=== PATIENT | male | born 1955 | race Two or more races ===

== ENCOUNTER 2024-09-05 14:53 | Outpatient (RCR) | payer MEDICARE, MEDICAID, SELFPAY ==
[2024-09-02 11:34] LABS: Basophils % (Auto) 1 % (0-2.5); Eosinophils # (Auto) 0.1 Thou/mm3 (0.0-0.5); Eosinophils % (Auto) 2 % (0-10); Hemoglobin 15.4 g/dL (13.5-16.0); Immature Granulocytes % (Auto) 0 % (0-0); Immature Granulocytes Auto 0.01 Thou/mm3 (0.00-0.00); Lymphocytes # (Auto) 2.2 Thou/mm3 (1.0-4.8); Lymphocytes % (Auto) 34 % (10-50); Mean Corpuscular HGB Conc 34.2 g/dl (31.0-37.0); Mean Corpuscular Hemoglobin 32.2 pg (25.0-35.0); Mean Corpuscular Volume 94 fL (80-100); Monocytes # (Auto) 0.4 Thou/mm3 (0.0-0.8); Monocytes % (Auto) 6 % (0-12); Neutrophils # (Auto) 3.6 Thou/mm3 (1.8-7.7); Neutrophils % (Auto) 57 % (37-80); Nucleated Red Blood Cell % 0 /100 WBC (0); Platelet Count 248 Thou/mm3 (140-440); RDW Standard Deviation 45.9 fL (35.1-43.9); Red Blood Count 4.79 Miln/mm3 (4.50-5.90); White Blood Count 6.3 Thou/mm3 (3.8-10.6)
[2024-09-02 12:05] LABS: Carcinoembryonic Antigen 1.9 ng/mL (0.0-5.0)
[2024-09-02 12:14] LABS: Alanine Aminotransferase 8 U/L (10-49); Albumin, Serum 4.6 gm/dL (3.4-4.8); Albumin/Globulin Ratio 1.6 (1.2-2.2); Alkaline Phosphatase 59 U/L (46-116); Anion Gap 8 (7-16); Aspartate Amino Transferase 26 U/L (0-34); BUN/Creatinine Ratio 11 Ratio (12-20); Bilirubin,Total 0.9 mg/dL (0.3-1.2); Blood Urea Nitrogen 11 mg/dL (9-23); Calcium 9.6 mg/dL (8.3-10.6); Calcium (Corrected) 9.6 mg/dL (8.5-10.1); Carbon Dioxide 26.2 mMol/L (20.0-31.0); Chloride 103 mMol/L (98-107); Globulin 2.9 gm/dL (2.3-3.5); Glucose 124 mg/dL (74-106); Osmolality,Calculated 274 (275-295); Potassium 3.3 mMol/L (3.4-5.1); Sodium 137 mMol/L (136-145); Total Protein 7.5 gm/dL (5.7-8.2); eGFR > 60 See Note
== END 2024-09-17 23:59 | disposition home or self-care (01) ==
LOC: SCTC 14:53
PROVIDERS: PCP Physician Assistant; Referring Provider Physician Assistant; Visit Provider Internal Medicine Hematology & Oncology
DX: C18.4 Malignant neoplasm of transverse colon (principal); Z90.49 Acquired absence of other specified parts of digestive tract
CPT/HCPCS: 36591; 80053; 82378; 85025; 99212; A4216; J1642; G0463

== ENCOUNTER 2024-10-03 11:23 | Outpatient (RCR) | payer MEDICARE, MEDICAID, SELFPAY ==
[2024-09-30 10:52] LABS: Basophils % (Auto) 1 % (0-2.5); Eosinophils # (Auto) 0.3 Thou/mm3 (0.0-0.5); Eosinophils % (Auto) 3 % (0-10); Hematocrit 44.5 % (41.0-53.0); Hemoglobin 15.3 g/dL (13.5-16.0); Immature Granulocytes % (Auto) 0 % (0-0); Immature Granulocytes Auto 0.01 Thou/mm3 (0.00-0.00); Lymphocytes # (Auto) 3.4 Thou/mm3 (1.0-4.8); Lymphocytes % (Auto) 45 % (10-50); Mean Corpuscular HGB Conc 34.4 g/dl (31.0-37.0); Mean Corpuscular Hemoglobin 31.6 pg (25.0-35.0); Mean Corpuscular Volume 92 fL (80-100); Monocytes # (Auto) 0.6 Thou/mm3 (0.0-0.8); Monocytes % (Auto) 8 % (0-12); Neutrophils # (Auto) 3.2 Thou/mm3 (1.8-7.7); Neutrophils % (Auto) 43 % (37-80); Nucleated Red Blood Cell % 0 /100 WBC (0); Platelet Count 179 Thou/mm3 (140-440); RDW Standard Deviation 43.8 fL (35.1-43.9); Red Blood Count 4.84 Miln/mm3 (4.50-5.90); White Blood Count 7.4 Thou/mm3 (3.8-10.6)
[2024-09-30 11:12] LABS: Carcinoembryonic Antigen 1.9 ng/mL (0.0-5.0)
[2024-09-30 11:13] LABS: Alanine Aminotransferase 11 U/L (10-49); Albumin, Serum 4.9 gm/dL (3.4-4.8); Albumin/Globulin Ratio 1.9 (1.2-2.2); Alkaline Phosphatase 67 U/L (46-116); Anion Gap 6 (7-16); Aspartate Amino Transferase 23 U/L (0-34); BUN/Creatinine Ratio 12 Ratio (12-20); Bilirubin,Total 0.7 mg/dL (0.3-1.2); Blood Urea Nitrogen 12 mg/dL (9-23); Calcium 9.6 mg/dL (8.3-10.6); Calcium (Corrected) 9.6 mg/dL (8.5-10.1); Carbon Dioxide 24.4 mMol/L (20.0-31.0); Chloride 107 mMol/L (98-107); Globulin 2.6 gm/dL (2.3-3.5); Glucose 120 mg/dL (74-106); Osmolality,Calculated 274 (275-295); Potassium 3.9 mMol/L (3.4-5.1); Sodium 137 mMol/L (136-145); Total Protein 7.5 gm/dL (5.7-8.2); eGFR > 60 See Note
== END 2024-10-18 23:59 | disposition home or self-care (01) ==
LOC: SCTC 11:23
PROVIDERS: PCP Registered Nurse Community Health; Referring Provider Internal Medicine Hematology & Oncology; Visit Provider Nurse Practitioner Family
DX: C18.4 Malignant neoplasm of transverse colon (principal); Z90.49 Acquired absence of other specified parts of digestive tract; R23.8 Other skin changes
CPT/HCPCS: 36591; 80053; 82378; 85025; 99212; A4216; J1642; G0463

== ENCOUNTER → 2024-10-31 | Outpatient (CLI) | payer MEDICARE, MEDICAID, SELFPAY ==
--- NOTE | 2024-10-31 14:00 | XR_ITS ---
Examination: CTA chest with intravenous contrast 2-D reconstructions 3-D reconstructions, vascular Date and time of exam: October 31, 2024 1627 hours INDICATIONS: Onset chest pain shortness of breath today CTDI: vol (mGy) 14.4 DLP: (mGycm) 396 Technique: Multiple axial sections of the thorax have been obtained. 3 mm slice thickness, from below the hemidiaphragms to above the apices of the lungs. Mediastinal and lung density settings have been obtained. 2-D sagittal and coronal reconstructions. 3-D angiographic renderings, 3-D volume renderings, 3D post processing, vascular maximum intensity projections obtained. Contrast administered is 100 cc Isovue-370. Low dose protocols were performed. One or more of the following dose reduction techniques were used; automated exposure control, adjustment of the mA and/or KV according to patient size, use of iterative reconstruction technique. Findings: No thoracic aortic aneurysm dilatation or dissection No pulmonary artery emboli No paratracheal tracheobronchial or bronchopulmonary adenopathy No pneumonia or pulmonary edema pulmonary nodules or pleural disease No visualized liver or splenic lesion Cholelithiasis No pancreatic mass Kidneys partially visualized no hydronephrosis Mild thoracic spondylosis IMPRESSION: Negative for pulmonary artery emboli No mediastinal lymphadenopathy No pneumonia, pulmonary edema, pulmonary nodules or pleural disease Cholelithiasis
== END | disposition home or self-care (01) ==
LOC: SCAT 13:09
PROVIDERS: PCP Registered Nurse Community Health; Referring Provider Nurse Practitioner Family; Visit Provider Nurse Practitioner Family
DX: K80.20 Calculus of gallbladder without cholecystitis without obstruction (principal); C18.4 Malignant neoplasm of transverse colon
CPT/HCPCS: 71275; A4649; Q9967

== ENCOUNTER 2024-11-03 10:23 | Outpatient (RCR) | payer MEDICARE, MEDICAID, SELFPAY | END 2024-11-18 23:59 | disposition home or self-care (01) | LOC: SCTC 10:23 | PROVIDERS: PCP Registered Nurse Community Health; Referring Provider Nurse Practitioner Family; Visit Provider Nurse Practitioner Family | DX: C18.4 Malignant neoplasm of transverse colon (principal); Z90.49 Acquired absence of other specified parts of digestive tract | CPT/HCPCS: 99212; G0463 ==

== ENCOUNTER 2024-12-14 10:28 | Outpatient (RCR) | payer MEDICARE, MEDICAID, SELFPAY ==
[2024-11-24 11:19] LABS: Basophils % (Auto) 0 % (0-2.5); Eosinophils # (Auto) 0.1 Thou/mm3 (0.0-0.5); Eosinophils % (Auto) 1 % (0-10); Hematocrit 41.1 % (41.0-53.0); Hemoglobin 14.2 g/dL (13.5-16.0); Immature Granulocytes % (Auto) 0 % (0-0); Immature Granulocytes Auto 0.01 Thou/mm3 (0.00-0.00); Lymphocytes # (Auto) 1.8 Thou/mm3 (1.0-4.8); Lymphocytes % (Auto) 24 % (10-50); Mean Corpuscular HGB Conc 34.5 g/dl (31.0-37.0); Mean Corpuscular Hemoglobin 31.1 pg (25.0-35.0); Mean Corpuscular Volume 90 fL (80-100); Monocytes # (Auto) 0.4 Thou/mm3 (0.0-0.8); Monocytes % (Auto) 5 % (0-12); Neutrophils % (Auto) 69 % (37-80); Nucleated Red Blood Cell % 0 /100 WBC (0); Platelet Count 241 Thou/mm3 (140-440); RDW Standard Deviation 42.2 fL (35.1-43.9); Red Blood Count 4.57 Miln/mm3 (4.50-5.90); White Blood Count 7.3 Thou/mm3 (3.8-10.6)
[2024-11-24 11:39] LABS: Alanine Aminotransferase 14 U/L (10-49); Albumin, Serum 4.7 gm/dL (3.4-4.8); Albumin/Globulin Ratio 1.6 (1.2-2.2); Alkaline Phosphatase 61 U/L (46-116); Anion Gap 11 (7-16); Aspartate Amino Transferase 44 U/L (0-34); BUN/Creatinine Ratio 14 Ratio (12-20); Bilirubin,Total 1.4 mg/dL (0.3-1.2); Blood Urea Nitrogen 14 mg/dL (9-23); Calcium 9.6 mg/dL (8.3-10.6); Calcium (Corrected) 9.6 mg/dL (8.5-10.1); Carbon Dioxide 27.3 mMol/L (20.0-31.0); Chloride 102 mMol/L (98-107); Globulin 2.9 gm/dL (2.3-3.5); Glucose 118 mg/dL (74-106); Osmolality,Calculated 280 (275-295); Potassium 3.3 mMol/L (3.4-5.1); Sodium 140 mMol/L (136-145); Total Protein 7.6 gm/dL (5.7-8.2); eGFR > 60 See Note
[2024-11-24 11:45] LABS: Carcinoembryonic Antigen 1.6 ng/mL (0.0-5.0)
[2024-12-13 08:42] LABS: Basophils % (Auto) 0 % (0-2.5); Eosinophils # (Auto) 0.2 Thou/mm3 (0.0-0.5); Eosinophils % (Auto) 3 % (0-10); Hematocrit 38.1 % (41.0-53.0); Hemoglobin 13.5 g/dL (13.5-16.0); Immature Granulocytes % (Auto) 0 % (0-0); Immature Granulocytes Auto 0.02 Thou/mm3 (0.00-0.00); Lymphocytes # (Auto) 3.2 Thou/mm3 (1.0-4.8); Lymphocytes % (Auto) 48 % (10-50); Mean Corpuscular HGB Conc 35.4 g/dl (31.0-37.0); Mean Corpuscular Hemoglobin 31.8 pg (25.0-35.0); Mean Corpuscular Volume 90 fL (80-100); Monocytes # (Auto) 0.4 Thou/mm3 (0.0-0.8); Monocytes % (Auto) 7 % (0-12); Neutrophils # (Auto) 2.8 Thou/mm3 (1.8-7.7); Neutrophils % (Auto) 42 % (37-80); Nucleated Red Blood Cell % 0 /100 WBC (0); Platelet Count 213 Thou/mm3 (140-440); RDW Standard Deviation 46.7 fL (35.1-43.9); Red Blood Count 4.24 Miln/mm3 (4.50-5.90); White Blood Count 6.7 Thou/mm3 (3.8-10.6)
[2024-12-13 09:02] LABS: Carcinoembryonic Antigen 2.1 ng/mL (0.0-5.0)
[2024-12-13 09:28] LABS: Alanine Aminotransferase < 7 U/L (10-49); Albumin, Serum 4.3 gm/dL (3.4-4.8); Albumin/Globulin Ratio 1.7 (1.2-2.2); Alkaline Phosphatase 60 U/L (46-116); Anion Gap 7 (7-16); Aspartate Amino Transferase 13 U/L (0-34); BUN/Creatinine Ratio 15 Ratio (12-20); Bilirubin,Total 0.5 mg/dL (0.3-1.2); Blood Urea Nitrogen 12 mg/dL (9-23); Calcium 8.9 mg/dL (8.3-10.6); Calcium (Corrected) 8.9 mg/dL (8.5-10.1); Carbon Dioxide 25.5 mMol/L (20.0-31.0); Chloride 109 mMol/L (98-107); Creatinine (Component) 0.8 mg/dL (0.6-1.3); Globulin 2.5 gm/dL (2.3-3.5); Glucose 104 mg/dL (74-106); Osmolality,Calculated 280 (275-295); Sodium 141 mMol/L (136-145); Total Protein 6.8 gm/dL (5.7-8.2); eGFR > 60 See Note
== END 2024-12-16 23:59 | disposition home or self-care (01) ==
LOC: SCTC 10:28
PROVIDERS: PCP Registered Nurse Community Health; Referring Provider Internal Medicine Hematology & Oncology; Visit Provider Nurse Practitioner Family
DX: C18.4 Malignant neoplasm of transverse colon (principal); Z90.49 Acquired absence of other specified parts of digestive tract
CPT/HCPCS: 36591; 80053; 82378; 85025; 99212; A4216; J1642; G0463

== ENCOUNTER 2025-01-19 12:57 | Outpatient (RCR) | payer MEDICARE, MEDICAID, SELFPAY ==
[2025-01-18 11:05] LABS: Basophils % (Auto) 0 % (0-2.5); Eosinophils # (Auto) 0.1 Thou/mm3 (0.0-0.5); Eosinophils % (Auto) 2 % (0-10); Hematocrit 41.8 % (41.0-53.0); Hemoglobin 14.5 g/dL (13.5-16.0); Immature Granulocytes % (Auto) 0 % (0-0); Immature Granulocytes Auto 0.02 Thou/mm3 (0.00-0.00); Lymphocytes # (Auto) 2.1 Thou/mm3 (1.0-4.8); Lymphocytes % (Auto) 31 % (10-50); Mean Corpuscular HGB Conc 34.7 g/dl (31.0-37.0); Mean Corpuscular Hemoglobin 32.2 pg (25.0-35.0); Mean Corpuscular Volume 93 fL (80-100); Monocytes # (Auto) 0.4 Thou/mm3 (0.0-0.8); Monocytes % (Auto) 7 % (0-12); Neutrophils # (Auto) 4.1 Thou/mm3 (1.8-7.7); Neutrophils % (Auto) 60 % (37-80); Nucleated Red Blood Cell % 0 /100 WBC (0); Platelet Count 202 Thou/mm3 (140-440); RDW Standard Deviation 50.8 fL (35.1-43.9); White Blood Count 6.8 Thou/mm3 (3.8-10.6)
[2025-01-18 11:18] LABS: Carcinoembryonic Antigen 1.5 ng/mL (0.0-5.0)
[2025-01-18 11:25] LABS: Alanine Aminotransferase 10 U/L (10-49); Albumin, Serum 4.7 gm/dL (3.4-4.8); Albumin/Globulin Ratio 1.7 (1.2-2.2); Alkaline Phosphatase 63 U/L (46-116); Anion Gap 8 (7-16); Aspartate Amino Transferase 23 U/L (0-34); BUN/Creatinine Ratio 14 Ratio (12-20); Bilirubin,Total 1.3 mg/dL (0.3-1.2); Blood Urea Nitrogen 13 mg/dL (9-23); Calcium 9.5 mg/dL (8.3-10.6); Calcium (Corrected) 9.5 mg/dL (8.5-10.1); Chloride 108 mMol/L (98-107); Creatinine (Component) 0.9 mg/dL (0.6-1.3); Globulin 2.7 gm/dL (2.3-3.5); Glucose 115 mg/dL (74-106); Osmolality,Calculated 282 (275-295); Sodium 141 mMol/L (136-145); Total Protein 7.4 gm/dL (5.7-8.2); eGFR > 60 See Note
--- NOTE | 2025-01-25 01:05 | CTCFLWUP_ITS ---
Patient: GABE KAPADIA : 1955 Page 6 of 6 FOLLOW UP NOTE DATE OF SERVICE: 01/19/2025 NAME: GABE KAPADIA ACCOUNT: [id number] : 1955 AGE: 69 INTERVAL HISTORY: Patient was started initially in 2023 for adjuvant therapy. Patient received 5- FU for about 4 weeks and then stopped it as he was unable to tolerate it. Patient was started on capecitabine initially at 1500 mg and patient completed 2 cycles in September and then dose was reduced to 1000 mg/m? twice daily as he was unable to tolerate it and has been compliant since then Patient has completed about 4 and half months of treatment till now. He says that he is having peeling and swelling on the hands and feet and want to stop further treatment. Patient also have constipation. 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 S/p segmental colectomy (03/11/2024) Patient was unable to tolerate 5-FU and leucovorin and was started on oral therapy with capecitabine. Patient was on capecitabine 1500 mg/m2 twice daily for 14 days every 3 weeks for 24 weeks as adjuvant therapy. Completed second cycle of capecitabine on 09/29/2024. C/o of mild peeling to hands for a few weeks, denies pain to hands, erythema. Dose reduction of capecitabine due to peeling of hands. Capecitabine 1000mg/m2 twice daily for 14 days every 3 weeks for total of 24 weeks as adjuvant therapy, completed third cycle on 12/08/2023. Peeling of hands has resolved. INTERVAL HISTORY: Gabe Kapadia is a 69-year-old ENG speaking male with history of hypertension as well as type 2 diabetes has the following oncology history. Mr. Kapadia had Cologuard test done about 2 months ago which came back positive. 02/22/2024: Mr. Kapadia had a colonoscopy 02/29/2024: CT scan of the chest abdomen and pelvis with IV contrast 03/10/2024: Mr. Kapadia had an attempted laparoscopic, open partial colectomy with anastomosis and mobilization of the splenic flexure. He was found to have large and near obstructing distal transverse colon tumor. DIAGNOSIS: Malignant neoplasm of transverse colon [ICD10] C18.4 DATE OF DIAGNOSIS: STAGE/TNM: TREATMENT HISTORY: Care?Plan Start?Date Cycle Day Intent 5?FU?and?leucovorin 05/05/2024 1 56 Curative?(adjuvant) HISTORY OF PRESENT ILLNESS: OTHER MEDICAL HISTORY/CONDITIONS: PROSTATE CA 2013 COLON CA DIABETES HIGH BLOOD PRESSURE PROSTECTOMY??DONE?[facility]?COLON FAMILY HISTORY: Patient?denies?family?cancer?history. 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 Tobacco?Pack?per?Day:?0 Tobacco?Use:?DENIES ETOH Use:?HEAVY DRINKING X 35 YRS QUIT, Admits to occasionally drinking Vodka, not ready to quit. Drug?Note:?DENIES Social?History?Note:?LIVES?ALONE MEDICATIONS: 1. amlodipine benzoate - 10 mg As directed 2. B Complex-Vitamin C - 20 mg-5 mg- 2 mg-75 mcg 1 tab 3. B12 Active - 1,000 mcg 1 tab 4. capecitabine - 500 mg 2 tab Twice a Day 5. Colace 2-In-1 - 8.6-50 mg 1 tab TWICE DIALY 6. glipizide - 2.5 mg Daily 7. losartan - 100 mg As directed 8. potassium chloride - 10 mEq 1 tab Daily 9. Stool Softener - 8.6-50 mg 1 tab Medications Last Reconciled by Joceline Menon MA on 01/19/2025 ALLERGIES: No Known Drug Allergies REVIEW OF SYSTEMS: A complete 14-point review of systems was performed and is negative except as noted in interval history. PHYSICAL EXAMINATION: VITAL SIGNS: Temperature?98.9, B/P?147/76, Oxygen?Saturation?99% Weight?167?lbs (Change?since?01/18/25:?2.2?lbs) PAIN: 0 - No pain ECOG Performance Status: 1 - Symptomatic; ambulatory; restricted in strenuous activity Vitals reviewed Patient is alert oriented x 4. CHEST: Clear to auscultation. No wheezes or rales audible. CARDIAC: Rhythm regular, no murmurs or gallops present. EXTREMITIES: No pedal edema or cyanosis. SKIN: No peeling to bilateral palms, no erythema, no pain LABORATORY DATA: I have personally reviewed and interpreted each of the patient?s relevant lab tests, abnormal findings are below: Date 12/13/24 01/18/25 ??WHITE?BLOOD?COUNT?(Thou/mm3) 6.7 6.8 ??RED?BLOOD?COUNT?(Miln/mm3) 4.24?L 4.50 ??HEMOGLOBIN?(gm/dl) 13.5 14.5 ??HEMATOCRIT?(%) 38.1?L 41.8 ??PLATELET?COUNT?(Thou/mm3) 213 202 ??NEUTROPHILS?%,?AUTO?(%) 42 60 ??LYMPH?%,?AUTO?(%) 48 31 ??NEUTROPHILS,?AUTO?(Thou/mm3) 2.8 4.1 ??GLUCOSE,RANDOM?(mg/dL) ? 115?H ??BLOOD?UREA?NITROGEN?(mg/dL) ? 13 ??CREATININE?(mg/dL) ? 0.90 ??SODIUM?(mmol/L) ? 141 ??POTASSIUM?(mmol/L) ? 4.0 ??CHLORIDE?(mmol/L) ? 108?H ??CrCl?(CandG)?(ml/min) ? 83.06 ??AST/SGOT?(Unit/L) ? 23 ??ALT/SGPT?(Unit/L) ? 10 ??ALKALINE?PHOSPHATASE?(Unit/L) ? 63 ??BILIRUBIN,?TOTAL?(mg/dL) ? 1.3?H ??PROTEIN?TOTAL?(gm/dl) ? 7.4 ??ALBUMIN,?SERUM?(gm/dl) ? 4.7 ??GLOBULIN?(gm/dl) ? 2.7 ??ALBUMIN/GLOBULIN?RATIO ? 1.7 ??CALCIUM,?SERUM?(mg/dL) ? 9.5 ??CALCIUM?SERUM?(CORRECTED)?(mg/dL) ? 9.5 ??CEA?(O*)?(ng/ml) ? 1.5 ASSESSMENT/PLAN: 1. 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 S/p segmental colectomy (03/11/2024) Patient was unable to tolerate 5-FU and leucovorin and was started on oral therapy with capecitabine. Patient understand benefit of chemotherapy prevention of reoccurrence of colon cancer is about 10% patient. Patient was on capecitabine 1500 mg/m2 twice daily for 14 days every 3 weeks for 24 weeks as adjuvant therapy. Completed second cycle of capecitabine on 09/29/2024. C/o of mild peeling to hands for a few weeks, denies pain to hands, erythema. Dose reduction of capecitabine due to peeling of hands. Capecitabine 1000mg/m2 twice daily for 14 days every 3 weeks for total of 24 weeks as adjuvant therapy, completed third cycle on 12/08/2024. Patient is tolerating capecitabine with peeling of hands CT of chest with contrast was negative for PE, no mediastinal lymphadenopathy no pulmonary nodules, 10/31/2024 CEA 2.1 on 12/13/2024. Bone desnity and naterra ORDERS: Order # Description [id number] Comprehensive Metabolic Panel - 12 + CBC with Auto Diff + CEA [id number] DXA L-Spine and Hip [id number] Follow Up 2 Months RETURN TO CLINIC: 2 months BILLING AND COMPLIANCE: I reviewed external records from providers outside my specialty as summarized above. I spent a total of 50 minutes on this patient?s care on the day of their visit excluding time spent related to any billed procedures. This time includes time spent with the patient as well as time spent documenting in the medical record, reviewing patients records and tests, obtaining history, placing orders, communicating with other healthcare professionals, counseling the patient, family or caregiver, and/or care coordination for the diagnoses above. Electronically Signed by: {Object.Sanct_ID*[email or web address]@}, {Object.Sanct_ID*PnP.Suffix@U} D: {Object.Sanct_Date} T: {Object.Sanct_Time} CC: PCP: Mony Menon Referring: Mony Menon This document was completed utilizing speech recognition software. Grammatical errors, random word insertions, pronoun errors, and incomplete sentences are an occasional consequence of this system due to software limitations, ambient noise, and hardware issues. Any formal questions or concerns about the content, text or information contained within the body of this dictation should be directly addressed to the provider for clarification.
== END 2025-02-15 23:59 | disposition home or self-care (01) ==
LOC: SCTC 12:57
PROVIDERS: PCP Registered Nurse Community Health; Referring Provider Registered Nurse Community Health; Visit Provider Nurse Practitioner Family
DX: C18.4 Malignant neoplasm of transverse colon (principal); Z90.49 Acquired absence of other specified parts of digestive tract
CPT/HCPCS: 36430; 36591; 80053; 82378; 85025; 99212; A4216; J1642; G0463

== ENCOUNTER → 2025-02-17 | Outpatient (CLI) | payer MEDICARE, MEDICAID, SELFPAY ==
--- NOTE | 2025-02-17 14:45 | XR_ITS ---
Examination: Bone densitometry Date and time of exam:February 17, 2025 1405 hours INDICATIONS: 69-year-old male with diagnosis age related osteoporosis, diagnosis malignant neoplasm of the colon Technique: Lumbar spine and hip total bone mineralization values of an calculated. Peak reference and age match control results have been displayed. Findings: Lumbar spine total bone mineralization is1.022 gm/cm2. This is 0.6 standard deviations below peak reference. This is 0.2 standard deviations above age-matched controls. Hip total bone mineralization is 0.921 gm/cm2 This is 0.7 standard deviations below peak reference. This is 0.1 standard deviations below age-matched controls Impression: There is normal mineralization based on lumbar spine measurements. There is osteopenia based on hip measurements Lumbar mineralization is increased 2.7% compared with August 12, 2019 Hip mineralization is increased 3.7% compared with August 12, 2019
== END | disposition home or self-care (01) ==
LOC: CDIM 13:23
PROVIDERS: PCP Registered Nurse Community Health; Referring Provider Internal Medicine Hematology & Oncology; Visit Provider Internal Medicine Hematology & Oncology
DX: M85.89 Other specified disorders of bone density and structure, multiple sites (principal); C18.4 Malignant neoplasm of transverse colon
CPT/HCPCS: 77080

== ENCOUNTER → 2025-02-20 | Outpatient (CLI) | payer MEDICARE, MEDICAID, SELFPAY ==
[2025-02-20 08:53] LABS: Misc Send Out* See Sep Rpt
== END | disposition home or self-care (01) ==
PROVIDERS: PCP Family Medicine; Referring Provider Internal Medicine Hematology & Oncology; Visit Provider Internal Medicine Hematology & Oncology
DX: C18.4 Malignant neoplasm of transverse colon (principal)

== ENCOUNTER 2025-03-30 13:13 | Outpatient (RCR) | payer MEDICARE, MEDICAID, SELFPAY ==
--- NOTE | 2025-04-09 22:34 | CTCFLWUP_ITS ---
Patient: CHRISS KAPADIA : 1955 Page 5 of 6 FOLLOW UP NOTE DATE OF SERVICE: 03/30/2025 NAME: CHRISS KAPADIA ACCOUNT: [id number] : 1955 AGE: 69 INTERVAL HISTORY: Patient was started initially in 2023 for adjuvant therapy. Patient received 5- FU for about 4 weeks and then stopped it as he was unable to tolerate it. Patient was started on capecitabine initially at 1500 mg and patient completed 2 cycles in September and then dose was reduced to 1000 mg/m? twice daily as he was unable to tolerate it and has been compliant since then Patient has completed about 4 and half months of treatment till now. Patient stopped treatment. Today he want to start treatment as have nateraa testing positive . 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 S/p segmental colectomy (03/11/2024) Patient was unable to tolerate 5-FU and leucovorin and was started on oral therapy with capecitabine. Patient was on capecitabine 1500 mg/m2 twice daily for 14 days every 3 weeks for 24 weeks as adjuvant therapy. Completed second cycle of capecitabine on 09/29/2024. C/o of mild peeling to hands for a few weeks, denies pain to hands, erythema. Dose reduction of capecitabine due to peeling of hands. Capecitabine 1000mg/m2 twice daily for 14 days every 3 weeks for total of 24 weeks as adjuvant therapy, completed third cycle on 12/08/2023. Peeling of hands has resolved. INTERVAL HISTORY: Chriss Kapadia is a 69-year-old ENG speaking male with history of hypertension as well as type 2 diabetes has the following oncology history. Mr. Kapadia had Cologuard test done about 2 months ago which came back positive. 02/22/2024: Mr. Kapadia had a colonoscopy 02/29/2024: CT scan of the chest abdomen and pelvis with IV contrast 03/10/2024: Mr. Kapadia had an attempted laparoscopic, open partial colectomy with anastomosis and mobilization of the splenic flexure. He was found to have large and near obstructing distal transverse colon tumor. DIAGNOSIS: Malignant neoplasm of transverse colon [ICD10] C18.4 DATE OF DIAGNOSIS: 02/22/2024 STAGE/TNM: Stage II colon adenocarcinoma TREATMENT HISTORY: Care?Plan Start?Date Cycle Day Intent 5?FU?and?leucovorin 05/05/2024 1 57 Curative?(adjuvant) 03/14/2025 porsha testing positive for colon cancer HISTORY OF PRESENT ILLNESS: OTHER MEDICAL HISTORY/CONDITIONS: PROSTATE CA 2013 COLON CA DIABETES HIGH BLOOD PRESSURE PROSTECTOMY??DONE?[facility]?COLON FAMILY HISTORY: Patient?denies?family?cancer?history. 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 Tobacco?Pack?per?Day:?0 Tobacco?Use:?DENIES ETOH Use:?HEAVY DRINKING X 35 YRS QUIT, Admits to occasionally drinking Vodka, not ready to quit. Drug?Note:?DENIES Social?History?Note:?LIVES?ALONE MEDICATIONS: 1. amlodipine benzoate - 10 mg As directed 2. B Complex-Vitamin C - 20 mg-5 mg- 2 mg-75 mcg 1 tab 3. B12 Active - 1,000 mcg 1 tab 4. capecitabine - 500 mg 2 tab twice daily 5. capecitabine - 500 mg 2 tab Twice a Day 6. glipizide - 2.5 mg Daily 7. Linzess - 290 mcg 1 Capsule Daily 8. losartan - 100 mg As directed 9. Men's 50 Plus Multivitamin - 400-20-370 mcg 1 tab Daily Medications Last Reconciled by Gillian Yan MA on 03/30/2025 ALLERGIES: No Known Drug Allergies REVIEW OF SYSTEMS: A complete 14-point review of systems was performed and is negative except as noted in interval history. PHYSICAL EXAMINATION: VITAL SIGNS: Temperature?98.4, B/P?154/79, Oxygen?Saturation?99% Weight?162?lbs PAIN: 5 - Between moderate and severe pain ECOG Performance Status: None Vitals reviewed Patient is alert oriented x 4. CHEST: Clear to auscultation. No wheezes or rales audible. CARDIAC: Rhythm regular, no murmurs or gallops present. EXTREMITIES: No pedal edema or cyanosis. SKIN: No peeling to bilateral palms, no erythema, no pain LABORATORY DATA: I have personally reviewed and interpreted each of the patient?s relevant lab tests, abnormal findings are below: Date 01/18/25 03/30/25 ??WHITE?BLOOD?COUNT?(Thou/mm3) 6.8 6.9 ??RED?BLOOD?COUNT?(Miln/mm3) 4.50 4.86 ??HEMOGLOBIN?(gm/dl) 14.5 15.9 ??HEMATOCRIT?(%) 41.8 46.2 ??PLATELET?COUNT?(Thou/mm3) 202 218 ??NEUTROPHILS?%,?AUTO?(%) 60 53 ??LYMPH?%,?AUTO?(%) 31 36 ??NEUTROPHILS,?AUTO?(Thou/mm3) 4.1 3.6 ??GLUCOSE,RANDOM?(mg/dL) ? 124?H ??BLOOD?UREA?NITROGEN?(mg/dL) ? 9 ??CREATININE?(mg/dL) ? 1.00 ??SODIUM?(mmol/L) ? 143 ??POTASSIUM?(mmol/L) ? 5.5?H ??CHLORIDE?(mmol/L) ? 107 ??CrCl?(CandG)?(ml/min) ? 75.75 ??ALT/SGPT?(Unit/L) ? 10 ??ALKALINE?PHOSPHATASE?(Unit/L) ? 58 ??BILIRUBIN,?TOTAL?(mg/dL) ? 0.7 ??PROTEIN?TOTAL?(gm/dl) ? 7.4 ??ALBUMIN,?SERUM?(gm/dl) ? 4.7 ??GLOBULIN?(gm/dl) ? 2.7 ??ALBUMIN/GLOBULIN?RATIO ? 1.7 ??CALCIUM,?SERUM?(mg/dL) ? 9.7 ??CALCIUM?SERUM?(CORRECTED)?(mg/dL) ? 9.7 ??CEA?(O*)?(ng/ml) ? 1.3 ASSESSMENT/PLAN: 1. 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 S/p segmental colectomy (03/11/2024) Patient was unable to tolerate 5-FU and leucovorin and was started on oral therapy with capecitabine. Patient understand benefit of chemotherapy prevention of reoccurrence of colon cancer is about 10% patient. Patient was on capecitabine 1500 mg/m2 twice daily for 14 days every 3 weeks for 24 weeks as adjuvant therapy. Completed second cycle of capecitabine on 09/29/2024. C/o of mild peeling to hands for a few weeks, denies pain to hands, erythema. Dose reduction of capecitabine due to peeling of hands. Capecitabine 1000mg/m2 twice daily for 14 days every 3 weeks for total of 24 weeks as adjuvant therapy, completed third cycle on 12/08/2024. CT of chest with contrast was negative for PE, no mediastinal lymphadenopathy no pulmonary nodules, 10/31/2024 CEA 2.1 on 12/13/2024. 02/22/2025 naterra test positive Patient likely have recurrence Patient want to restart capecitabine as have medication at hand Will ordered CT scan to evaluate for malignancy Already scheduled for colonoscopy ORDERS: Order # Description [id number] CT Scan + Abdomen and Pelvis + Chest + With W/O Contrast RETURN TO CLINIC: 4 weeks with the scan results BILLING AND COMPLIANCE: I reviewed external records from providers outside my specialty as summarized above. I spent a total of 50 minutes on this patient?s care on the day of their visit excluding time spent related to any billed procedures. This time includes time spent with the patient as well as time spent documenting in the medical record, reviewing patients records and tests, obtaining history, placing orders, communicating with other healthcare professionals, counseling the patient, family or caregiver, and/or care coordination for the diagnoses above. Electronically Signed by: {Object.Sanct_ID*[email or web address]@M}, {Object.Sanct_ID*[email or web address]@U} D: {Object.Sanct_Date} T: {Object.Sanct_Time} CC: PCP: Jose Kapadia Referring: Jose Kapadia This document was completed utilizing speech recognition software. Grammatical errors, random word insertions, pronoun errors, and incomplete sentences are an occasional consequence of this system due to software limitations, ambient noise, and hardware issues. Any formal questions or concerns about the content, text or information contained within the body of this dictation should be directly addressed to the provider for clarification.
== END 2025-04-17 23:59 | disposition home or self-care (01) ==
LOC: SCTC 13:13
PROVIDERS: PCP Family Medicine; Referring Provider Family Medicine; Visit Provider Internal Medicine Hematology & Oncology
DX: C18.4 Malignant neoplasm of transverse colon (principal); Z90.49 Acquired absence of other specified parts of digestive tract
CPT/HCPCS: 99212; G0463

== ENCOUNTER → 2025-03-30 | Outpatient (CLI) | payer MEDICARE, MEDICAID, SELFPAY ==
[2025-03-30 09:56] LABS: Basophils % (Auto) 0 % (0-2.5); Eosinophils # (Auto) 0.2 Thou/mm3 (0.0-0.5); Eosinophils % (Auto) 3 % (0-10); Hematocrit 46.2 % (41.0-53.0); Hemoglobin 15.9 g/dL (13.5-16.0); Immature Granulocytes % (Auto) 0 % (0-0); Immature Granulocytes Auto 0.02 Thou/mm3 (0.00-0.00); Lymphocytes # (Auto) 2.4 Thou/mm3 (1.0-4.8); Lymphocytes % (Auto) 36 % (10-50); Mean Corpuscular HGB Conc 34.4 g/dl (31.0-37.0); Mean Corpuscular Hemoglobin 32.7 pg (25.0-35.0); Mean Corpuscular Volume 95 fL (80-100); Monocytes # (Auto) 0.5 Thou/mm3 (0.0-0.8); Monocytes % (Auto) 8 % (0-12); Neutrophils # (Auto) 3.6 Thou/mm3 (1.8-7.7); Neutrophils % (Auto) 53 % (37-80); Nucleated Red Blood Cell % 0 /100 WBC (0); Platelet Count 218 Thou/mm3 (140-440); RDW Standard Deviation 43.8 fL (35.1-43.9); Red Blood Count 4.86 Miln/mm3 (4.50-5.90); White Blood Count 6.9 Thou/mm3 (3.8-10.6)
[2025-03-30 10:16] LABS: Carcinoembryonic Antigen 1.3 ng/mL (0.0-5.0)
[2025-03-30 10:21] LABS: Anion Gap 8 (7-16); BUN/Creatinine Ratio 9 Ratio (12-20); Blood Urea Nitrogen 9 mg/dL (9-23); Carbon Dioxide 27.6 mMol/L (20.0-31.0); Chloride 107 mMol/L (98-107); Potassium 5.5 mMol/L (3.4-5.1); Sodium 143 mMol/L (136-145)
[2025-03-30 10:22] LABS: Alanine Aminotransferase 10 U/L (10-49); Albumin, Serum 4.7 gm/dL (3.4-4.8); Albumin/Globulin Ratio 1.7 (1.2-2.2); Alkaline Phosphatase 58 U/L (46-116); Bilirubin,Total 0.7 mg/dL (0.3-1.2); Calcium 9.7 mg/dL (8.3-10.6); Calcium (Corrected) 9.7 mg/dL (8.5-10.1); Globulin 2.7 gm/dL (2.3-3.5); Glucose 124 mg/dL (74-106); Osmolality,Calculated 284 (275-295); Total Protein 7.4 gm/dL (5.7-8.2); eGFR > 60 See Note
== END | disposition home or self-care (01) ==
PROVIDERS: PCP Registered Nurse Community Health; Referring Provider Internal Medicine Hematology & Oncology; Visit Provider Internal Medicine Hematology & Oncology
DX: C18.4 Malignant neoplasm of transverse colon (principal)
CPT/HCPCS: 36415; 80053; 82378; 85025

== ENCOUNTER 2025-04-24 09:40 | Day surgery (SDC) | payer MEDICARE, MEDICAID, SELFPAY ==
[2025-04-24] VITALS (10 sets, daily range): BP systolic 112–148; BP diastolic 71–90; PULSE 68–89; RESP 11–18; TEMP 36.8; O2SAT 96–100; BMI 22.6
[2025-04-24] MEDS: SODIUM CHLORIDE 0.9% 500 ML 500 ML 20 ML IV (10:54)
[2025-04-24] MEDS: MIDAZOLAM INJ 1 MG/ML VIAL 2 ML (ASD USE ONLY) 2 MG IVP (10:56)
[2025-04-24] MEDS: fentaNYL CIT INJ 50 mCg/ML AMP 2ML IVP (10:56)
== END 2025-04-24 12:00 | disposition home or self-care (01) ==
PROVIDERS: PCP Registered Nurse Community Health; Referring Provider Specialist; Visit Provider Specialist
PROC: 0DBE8ZX Excision of Large Intestine, Via Natural or Artificial Opening Endoscopic, Diagnostic (ICD-10-PCS; CPT 45380; principal; 2025-04-24 11:15)
DX: Z12.11 Encounter for screening for malignant neoplasm of colon (principal); Z85.048 Personal history of other malignant neoplasm of rectum, rectosigmoid junction, and anus; Z86.0100 Personal history of colon polyps, unspecified; D12.4 Benign neoplasm of descending colon; K64.9 Unspecified hemorrhoids; K57.30 Diverticulosis of large intestine without perforation or abscess without bleeding
CPT/HCPCS: 45385; 45380; J1200; J2250; J3010; J7999

== ENCOUNTER → 2025-05-09 | Outpatient (CLI) | payer MEDICARE, MEDICAID, SELFPAY ==
[2025-05-09 10:05] LABS: Basophils # (Auto) 0.0 Thou/mm3 (0.0-0.2); Basophils % (Auto) 0 % (0-2.5); Eosinophils # (Auto) 0.2 Thou/mm3 (0.0-0.5); Eosinophils % (Auto) 2 % (0-10); Hematocrit 43.5 % (41.0-53.0); Hemoglobin 15.2 g/dL (13.5-16.0); Immature Granulocytes Auto 0.03 Thou/mm3 (0.00-0.00); Lymphocytes # (Auto) 2.7 Thou/mm3 (1.0-4.8); Lymphocytes % (Auto) 27 % (10-50); Mean Corpuscular HGB Conc 34.9 g/dl (31.0-37.0); Mean Corpuscular Hemoglobin 32.3 pg (25.0-35.0); Mean Corpuscular Volume 93 fL (80-100); Monocytes # (Auto) 0.5 Thou/mm3 (0.0-0.8); Monocytes % (Auto) 5 % (0-12); Neutrophils # (Auto) 6.6 Thou/mm3 (1.8-7.7); Neutrophils % (Auto) 65 % (37-80); Nucleated Red Blood Cell # 0.00 Thou/mm3 (0.00-0.00); Nucleated Red Blood Cell % 0 /100 WBC (0); Platelet Count 234 Thou/mm3 (140-440); RDW Standard Deviation 47.1 fL (35.1-43.9); Red Blood Count 4.70 Miln/mm3 (4.50-5.90); White Blood Count 10.1 Thou/mm3 (3.8-10.6)
[2025-05-09 10:31] LABS: Carcinoembryonic Antigen 1.4 ng/mL (0.0-5.0)
--- NOTE | 2025-05-09 11:00 | XR_ITS ---
Examination: CT chest with intravenous contrast CT abdomen with intravenous contrast CT pelvis with intravenous contrast CT chest without intravenous contrast CT abdomen without intravenous contrast CT pelvis without intravenous contrast 2-D coronal and sagittal reconstructions Time of exam: May 09, 2025, [address] chest October 31, 2024, CT abdomen pelvis June 28, 2024, CT chest February 29, 2024 INDICATIONS: Diagnosis malignant neoplasm transverse colon diagnosed 2023 restaging CTDI: vol (mGy) : 18.6 DLP: (mGycm): 1072 Technique: Multiple axial images of the chest, abdomen and pelvis with intravenous contrast, 3.0 mm slice thickness. Images obtained post intravenous injection Isovue 370 60 cc. 2-D sagittal and coronal reconstructions. Low dose protocols were performed. One or more of the following dose reduction techniques were used; automated exposure control, adjustment of the mA and/or KV according to patient size, use of iterative reconstruction technique. Findings: No thoracic aortic aneurysm dilatation No pulmonary artery filling defects No interval paratracheal tracheobronchial or bronchopulmonary adenopathy. New 2 mm pulmonary nodule posterior right upper lobe, image 104 compared to prior study No interval pneumonia or pulmonary edema No liver or splenic lesion No gallstones No pancreatic mass Aorta is normal in size Anterior abdominal wall 3 cm fat-containing hernia No interval abdominal or pelvic lymphadenopathy No colonic lesion is currently depicted Urinary bladder intact Prominent osteopenia IMPRESSION: New 2 mm pulmonary nodule posterior right upper lobe compared to the CT chest February 29, [address] chest October 31, 2024, recommend continued 6 month follow-up CT chest without contrast
[2025-05-09 11:54] LABS: Alanine Aminotransferase 8 U/L (10-49); Albumin, Serum 4.6 gm/dL (3.4-4.8); Albumin/Globulin Ratio 2.2 (1.2-2.2); Alkaline Phosphatase 67 U/L (46-116); Aspartate Amino Transferase 21 U/L (0-34); BUN/Creatinine Ratio 14 Ratio (12-20); Bilirubin,Total 0.6 mg/dL (0.3-1.2); Blood Urea Nitrogen 14 mg/dL (9-23); Calcium 10.0 mg/dL (8.3-10.6); Calcium (Corrected) 10.0 mg/dL (8.5-10.1); Carbon Dioxide 27.5 mMol/L (20.0-31.0); Creatinine (Component) 1.0 mg/dL (0.6-1.3); Globulin 2.1 gm/dL (2.3-3.5); Glucose 106 mg/dL (74-106); Total Protein 6.7 gm/dL (5.7-8.2); eGFR > 60 See Note
[2025-05-09 11:59] LABS: Anion Gap 9 (7-16); Chloride 106 mMol/L (98-107); Osmolality,Calculated 283 (275-295); Potassium 5.1 mMol/L (3.4-5.1); Sodium 142 mMol/L (136-145)
== END | disposition home or self-care (01) ==
PROVIDERS: Referring Provider Internal Medicine Hematology & Oncology; Visit Provider Internal Medicine Hematology & Oncology
DX: R91.1 Solitary pulmonary nodule (principal)
CPT/HCPCS: 36415; 71270; 74178; 80053; 82378; 85025; A4649; Q9967

== ENCOUNTER 2025-05-26 09:52 | Outpatient (RCR) | payer MEDICARE, MEDICAID, SELFPAY ==
--- NOTE | 2025-05-29 03:10 | CTCFLWUP_ITS ---
Patient: CHRISS SUAZO : 1955 Page 4 of 6 FOLLOW UP NOTE DATE OF SERVICE: 05/24/2025 NAME: CHRSIS SUAZO ACCOUNT: [id number] : 1955 AGE: 69 INTERVAL HISTORY: Patient was started initially in 2023 for adjuvant therapy. Patient received 5- FU for about 4 weeks and then stopped it as he was unable to tolerate it. Patient was started on capecitabine initially at 1500 mg and patient completed 2 cycles in September and then dose was reduced to 1000 mg/m? twice daily as he was unable to tolerate it and has been compliant since then Patient has been taking treatment on and off. Last dose was again a month ago. ONCOLOGY HISTORY:?[facility] Hx? 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 S/p segmental colectomy (03/11/2024) Patient was unable to tolerate 5-FU and leucovorin and was started on oral therapy with capecitabine. Patient was on capecitabine 1500 mg/m2 twice daily for 14 days every 3 weeks for 24 weeks as adjuvant therapy. Completed second cycle of capecitabine on 09/29/2024. C/o of mild peeling to hands for a few weeks, denies pain to hands, erythema. Dose reduction of capecitabine due to peeling of hands. Capecitabine 1000mg/m2 twice daily for 14 days every 3 weeks for total of 24 weeks as adjuvant therapy, completed third cycle on 12/08/2023. Peeling of hands has resolved. INTERVAL HISTORY: Chriss Suazo is a 69-year-old ENG speaking male with history of hypertension as well as type 2 diabetes has the following oncology history. Mr. Suazo had Cologuard test done about 2 months ago which came back positive. 02/22/2024: Mr. Suazo had a colonoscopy 02/29/2024: CT scan of the chest abdomen and pelvis with IV contrast 03/10/2024: Mr. Suazo had an attempted laparoscopic, open partial colectomy with anastomosis and mobilization of the splenic flexure. He was found to have large and near obstructing distal transverse colon tumor. DIAGNOSIS: Malignant neoplasm of transverse colon [ICD10] C18.4 DATE OF DIAGNOSIS: 02/22/2024 STAGE/TNM: Stage II colon adenocarcinoma TREATMENT HISTORY: Care?Plan Start?Date Cycle Day Intent 5?FU?and?leucovorin 05/05/2024 1 56 Curative?(adjuvant) HISTORY OF PRESENT ILLNESS: Patient is 68-year-old male who had colonoscopy on 02/22/2020 for and was found to have large nonobstructing mass in the descending colon which was found to be adenocarcinoma with intact expression. Patient had open partial colectomy and final stage was T3 N0. Patient had 19 lymph nodes removed and all were negative. Patient was started on adjuvant 5-FU and leucovorin and was unable to tolerate. At a later stage when patient Signatera testing was positive patient wanted to start taking capecitabine. Patient completed 4 months of capecitabine on end of. OTHER MEDICAL HISTORY/CONDITIONS: PROSTATE CA 2013 COLON CA DIABETES HIGH BLOOD PRESSURE PROSTECTOMY??DONE?[facility]?COLON FAMILY HISTORY: Patient?denies?family?cancer?history. 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 Tobacco?Pack?per?Day:?0 Tobacco?Use:?DENIES ETOH Use:?HEAVY DRINKING X 35 YRS QUIT, Admits to occasionally drinking Vodka, not ready to quit. Drug?Note:?DENIES Social?History?Note:?LIVES?ALONE MEDICATIONS: 1. amlodipine benzoate - 10 mg As directed 2. B Complex-Vitamin C - 20 mg-5 mg- 2 mg-75 mcg 1 tab 3. B12 Active - 1,000 mcg 1 tab 4. capecitabine - 500 mg 2 tab twice daily 5. glipizide - 2.5 mg Daily 6. Linzess - 290 mcg 1 Capsule Daily 7. losartan - 100 mg As directed 8. Men's 50 Plus Multivitamin - 400-20-370 mcg 1 tab Daily?[facility]ra Meds? Medications Last Reconciled by Gillian Yan MA on 05/24/2025 ALLERGIES: No Known Drug Allergies REVIEW OF SYSTEMS: A complete 14-point review of systems was performed and is negative except as noted in interval history. PHYSICAL EXAMINATION:?[facility] PE? VITAL SIGNS: Temperature?98, B/P?134/82, Oxygen?Saturation?99% PAIN: 0 - No pain ECOG Performance Status: 0 - Asymptomatic and fully active Vitals reviewed Patient is alert oriented x 4. CHEST: Clear to auscultation. No wheezes or rales audible. CARDIAC: Rhythm regular, no murmurs or gallops present. EXTREMITIES: No pedal edema or cyanosis. SKIN: No peeling to bilateral palms, no erythema, no pain LABORATORY DATA: I have personally reviewed and interpreted each of the patient?s relevant lab tests, abnormal findings are below: Date 03/30/25 05/09/25 ??WHITE?BLOOD?COUNT?(Thou/mm3) 6.9 10.1 ??RED?BLOOD?COUNT?(Miln/mm3) 4.86 4.70 ??HEMOGLOBIN?(gm/dl) 15.9 15.2 ??HEMATOCRIT?(%) 46.2 43.5 ??PLATELET?COUNT?(Thou/mm3) 218 234 ??NEUTROPHILS?%,?AUTO?(%) 53 65 ??LYMPH?%,?AUTO?(%) 36 27 ??NEUTROPHILS,?AUTO?(Thou/mm3) 3.6 6.6 ??GLUCOSE,RANDOM?(mg/dL) ? 106 ??BLOOD?UREA?NITROGEN?(mg/dL) ? 14 ??CREATININE?(mg/dL) ? 1.00 ??SODIUM?(mmol/L) ? 142 ??POTASSIUM?(mmol/L) ? 5.1 ??CHLORIDE?(mmol/L) ? 106 ??CrCl?(CandG)?(ml/min) ? 73.48 ??AST/SGOT?(Unit/L) ? 21 ??ALT/SGPT?(Unit/L) ? 8?L ??ALKALINE?PHOSPHATASE?(Unit/L) ? 67 ??BILIRUBIN,?TOTAL?(mg/dL) ? 0.6 ??PROTEIN?TOTAL?(gm/dl) ? 6.7 ??ALBUMIN,?SERUM?(gm/dl) ? 4.6 ??GLOBULIN?(gm/dl) ? 2.1?L ??ALBUMIN/GLOBULIN?RATIO ? 2.2 ??CALCIUM,?SERUM?(mg/dL) ? 10.0 ??CALCIUM?SERUM?(CORRECTED)?(mg/dL) ? 10.0 ??CEA?(O*)?(ng/ml) ? 1.4 ASSESSMENT/PLAN:?Julius Yu Assessment/Plan? 1. 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 S/p segmental colectomy (03/11/2024) Patient was unable to tolerate 5-FU and leucovorin and was started on oral therapy with capecitabine. Patient understand benefit of chemotherapy prevention of reoccurrence of colon cancer is about 10% patient. Patient was on capecitabine 1500 mg/m2 twice daily for 14 days every 3 weeks for 24 weeks as adjuvant therapy. Patient has completed 4 months of capecitabine 05/09/2025 patient has new 2 mm pulmonary nodule in the right upper lobe. Recommendation is to repeat scan in 6 months Of note patient's Anatera has been positive Patient is very noncompliant and will not offer any further treatment at this time Repeat imaging in 3 months ORDERS: Order # Description [id number] CT Scan + Chest + Abdomen and Pelvis + With W/O Contrast RETURN TO CLINIC: I reviewed the diagnosis, prognosis, and recommended treatment/procedure options with the patient (and/or their legal contact representative), including the potential benefits, risks, side effects and alternative therapies. We also discussed the option of no treatment and the possibility of clinical trial participation, if applicable. All questions were addressed, and they demonstrated understanding. They provided informed consent to proceed with the proposed plan of care. BILLING AND COMPLIANCE: I reviewed external records from providers outside my specialty as summarized above. I spent a total of 50 minutes on this patient?s care on the day of their visit excluding time spent related to any billed procedures. This time includes time spent with the patient as well as time spent documenting in the medical record, reviewing patients records and tests, obtaining history, placing orders, communicating with other healthcare professionals, counseling the patient, family or caregiver, and/or care coordination for the diagnoses above. Electronically Signed by: Gus Yu MD T: 3:08 AM CC: Noah?Josafat?Mohsen,? PCP: Noah Lowery Referring: Noah Lowery This document was completed utilizing speech recognition software. Grammatical errors, random word insertions, pronoun errors, and incomplete sentences are an occasional consequence of this system due to software limitations, ambient noise, and hardware issues. Any formal questions or concerns about the content, text or information contained within the body of this dictation should be directly addressed to the provider for clarification.
== END 2025-06-18 23:59 | disposition home or self-care (01) ==
LOC: SCTC 09:52
PROVIDERS: PCP Internal Medicine; Referring Provider Internal Medicine; Visit Provider Internal Medicine Hematology & Oncology
DX: C18.4 Malignant neoplasm of transverse colon (principal); R91.1 Solitary pulmonary nodule; Z90.49 Acquired absence of other specified parts of digestive tract; Z91.199 Patient's noncompliance with other medical treatment and regimen due to unspecified reason
CPT/HCPCS: 96365; 96523; 99212; A4216; J1642; J2997; G0463

== ENCOUNTER 2025-07-25 13:33 | Outpatient (RCR) | payer MEDICARE, MEDICAID, SELFPAY ==
[2025-07-24 14:16] LABS: Basophils # (Auto) 0.0 Thou/mm3 (0.0-0.2); Basophils % (Auto) 1 % (0-2.5); Eosinophils # (Auto) 0.2 Thou/mm3 (0.0-0.5); Eosinophils % (Auto) 2 % (0-10); Hematocrit 40.5 % (41.0-53.0); Hemoglobin 14.0 g/dL (13.5-16.0); Immature Granulocytes Auto 0.01 Thou/mm3 (0.00-0.00); Lymphocytes # (Auto) 3.2 Thou/mm3 (1.0-4.8); Lymphocytes % (Auto) 44 % (10-50); Mean Corpuscular HGB Conc 34.6 g/dl (31.0-37.0); Mean Corpuscular Hemoglobin 33.1 pg (25.0-35.0); Mean Corpuscular Volume 96 fL (80-100); Monocytes # (Auto) 0.6 Thou/mm3 (0.0-0.8); Monocytes % (Auto) 8 % (0-12); Neutrophils # (Auto) 3.3 Thou/mm3 (1.8-7.7); Neutrophils % (Auto) 45 % (37-80); Nucleated Red Blood Cell # 0.00 Thou/mm3 (0.00-0.00); Nucleated Red Blood Cell % 0 /100 WBC (0); Platelet Count 201 Thou/mm3 (140-440); RDW Standard Deviation 54.3 fL (35.1-43.9); Red Blood Count 4.23 Miln/mm3 (4.50-5.90); White Blood Count 7.3 Thou/mm3 (3.8-10.6)
[2025-07-24 14:32] LABS: Alanine Aminotransferase 11 U/L (10-49); Albumin, Serum 4.7 gm/dL (3.4-4.8); Albumin/Globulin Ratio 1.7 (1.2-2.2); Alkaline Phosphatase 67 U/L (46-116); Anion Gap 10 (7-16); Aspartate Amino Transferase 29 U/L (0-34); BUN/Creatinine Ratio 11 Ratio (12-20); Bilirubin,Total 0.7 mg/dL (0.3-1.2); Blood Urea Nitrogen 10 mg/dL (9-23); Calcium 9.3 mg/dL (8.3-10.6); Calcium (Corrected) 9.3 mg/dL (8.5-10.1); Carbon Dioxide 23.8 mMol/L (20.0-31.0); Chloride 107 mMol/L (98-107); Creatinine (Component) 0.9 mg/dL (0.6-1.3); Globulin 2.8 gm/dL (2.3-3.5); Glucose 115 mg/dL (74-106); Osmolality,Calculated 281 (275-295); Potassium 4.2 mMol/L (3.4-5.1); Sodium 141 mMol/L (136-145); Total Protein 7.5 gm/dL (5.7-8.2); eGFR > 60 See Note
[2025-07-24 14:34] LABS: Carcinoembryonic Antigen 1.4 ng/mL (0.0-5.0)
--- NOTE | 2025-07-25 15:01 | CTCFLWUP_ITS ---
Patient: CHRISS SUAZO : 1955 Page 4 of 6 FOLLOW UP NOTE DATE OF SERVICE: 07/25/2025 NAME: CHRISS SUAZO ACCOUNT: [id number] : 1955 AGE: 70 INTERVAL HISTORY: Patient was started initially in 2023 for adjuvant therapy. Patient received 5- FU for about 4 weeks and then stopped it as he was unable to tolerate it. Patient was started on capecitabine initially at 1500 mg and patient completed 2 cycles in September and then dose was reduced to 1000 mg/m? twice daily as he was unable to tolerate it and has been compliant since then Patient has been taking treatment on and off patient says for last 2 months he has been compliant. Patient's last scan in April showed very small lung nodule. Patient also has been complaining of pain in his throat. 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 S/p segmental colectomy (03/11/2024) Patient was unable to tolerate 5-FU and leucovorin and was started on oral therapy with capecitabine. Patient was on capecitabine 1500 mg/m2 twice daily for 14 days every 3 weeks for 24 weeks as adjuvant therapy. Completed second cycle of capecitabine on 09/29/2024. C/o of mild peeling to hands for a few weeks, denies pain to hands, erythema. Dose reduction of capecitabine due to peeling of hands. Capecitabine 1000mg/m2 twice daily for 14 days every 3 weeks for total of 24 weeks as adjuvant therapy, completed third cycle on 12/08/2023. Peeling of hands has resolved. INTERVAL HISTORY: Chriss Suazo is a 70-year-old ENG speaking male with history of hypertension as well as type 2 diabetes has the following oncology history. Mr. Suazo had Cologuard test done about 2 months ago which came back positive. 02/22/2024: Mr. Suazo had a colonoscopy 02/29/2024: CT scan of the chest abdomen and pelvis with IV contrast 03/10/2024: Mr. Suazo had an attempted laparoscopic, open partial colectomy with anastomosis and mobilization of the splenic flexure. He was found to have large and near obstructing distal transverse colon tumor. DIAGNOSIS: Malignant neoplasm of transverse colon [ICD10] C18.4 DATE OF DIAGNOSIS: 02/22/2024 STAGE/TNM: Stage II colon adenocarcinoma TREATMENT HISTORY: Care?Plan Start?Date Cycle Day Intent 5?FU?and?leucovorin 05/05/2024 1 56 Curative?(adjuvant) HISTORY OF PRESENT ILLNESS: Patient is 70-year-old male who had colonoscopy on 02/22/2020 for and was found to have large nonobstructing mass in the descending colon which was found to be adenocarcinoma with intact expression. Patient had open partial colectomy and final stage was T3 N0. Patient had 19 lymph nodes removed and all were negative. Patient was started on adjuvant 5-FU and leucovorin and was unable to tolerate. At a later stage when patient Signatera testing was positive patient wanted to start taking capecitabine. Patient completed 4 months of capecitabine on end of. OTHER MEDICAL HISTORY/CONDITIONS: PROSTATE CA 2013 COLON CA DIABETES HIGH BLOOD PRESSURE PROSTECTOMY??DONE?[facility]?COLON FAMILY HISTORY: Patient?denies?family?cancer?history. 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 Tobacco?Pack?per?Day:?0 Tobacco?Use:?DENIES ETOH Use:?HEAVY DRINKING X 35 YRS QUIT, Admits to occasionally drinking Vodka, not ready to quit. Drug?Note:?DENIES Social?History?Note:?LIVES?ALONE MEDICATIONS: 1. amlodipine benzoate - 10 mg As directed 2. B Complex-Vitamin C - 20 mg-5 mg- 2 mg-75 mcg 1 tab 3. B12 Active - 1,000 mcg 1 tab 4. capecitabine - 500 mg 2 tab twice daily 5. glipizide - 2.5 mg Daily 6. Linzess - 290 mcg 1 Capsule Daily 7. losartan - 100 mg As directed 8. Men's 50 Plus Multivitamin - 400-20-370 mcg 1 tab Daily 9. pantoprazole - 40 mg 1 tab Daily in morning Medications Last Reconciled by Gillian Quevedo MD on 07/25/2025 ALLERGIES: No Known Drug Allergies REVIEW OF SYSTEMS: A complete 14-point review of systems was performed and is negative except as noted in interval history. PHYSICAL EXAMINATION: VITAL SIGNS: Temperature?99, B/P?150/91, Oxygen?Saturation?97% Weight?165?lbs (Change?since?07/24/25:?-0.8?lbs) PAIN: 0 - No pain ECOG Performance Status: 0 - Asymptomatic and fully active Vitals reviewed Patient is alert oriented x 4. CHEST: Clear to auscultation. No wheezes or rales audible. CARDIAC: Rhythm regular, no murmurs or gallops present. EXTREMITIES: No pedal edema or cyanosis. SKIN: No peeling to bilateral palms, no erythema, no pain Throat examination do not reveal any obvious lesion LABORATORY DATA: I have personally reviewed and interpreted each of the patient?s relevant lab tests, abnormal findings are below: Date 05/09/25 07/24/25 ??WHITE?BLOOD?COUNT?(Thou/mm3) 10.1 7.3 ??RED?BLOOD?COUNT?(Miln/mm3) 4.70 4.23?L ??HEMOGLOBIN?(gm/dl) 15.2 14.0 ??HEMATOCRIT?(%) 43.5 40.5?L ??PLATELET?COUNT?(Thou/mm3) 234 201 ??NEUTROPHILS?%,?AUTO?(%) 65 45 ??LYMPH?%,?AUTO?(%) 27 44 ??NEUTROPHILS,?AUTO?(Thou/mm3) 6.6 3.3 ??GLUCOSE,RANDOM?(mg/dL) ? 115?H ??BLOOD?UREA?NITROGEN?(mg/dL) ? 10 ??CREATININE?(mg/dL) ? 0.90 ??SODIUM?(mmol/L) ? 141 ??POTASSIUM?(mmol/L) ? 4.2 ??CHLORIDE?(mmol/L) ? 107 ??CrCl?(CandG)?(ml/min) ? 82.40 ??AST/SGOT?(Unit/L) ? 29 ??ALT/SGPT?(Unit/L) ? 11 ??ALKALINE?PHOSPHATASE?(Unit/L) ? 67 ??BILIRUBIN,?TOTAL?(mg/dL) ? 0.7 ??PROTEIN?TOTAL?(gm/dl) ? 7.5 ??ALBUMIN,?SERUM?(gm/dl) ? 4.7 ??GLOBULIN?(gm/dl) ? 2.8 ??ALBUMIN/GLOBULIN?RATIO ? 1.7 ??CALCIUM,?SERUM?(mg/dL) ? 9.3 ??CALCIUM?SERUM?(CORRECTED)?(mg/dL) ? 9.3 ??CEA?(O*)?(ng/ml) ? 1.4 ASSESSMENT/PLAN: 1. Stage IV colon cancer 2. 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 S/p segmental colectomy (03/11/2024) Patient was unable to tolerate 5-FU and leucovorin and was started on oral therapy with capecitabine. Patient understand benefit of chemotherapy prevention of reoccurrence of colon cancer is about 10% patient. Patient was on capecitabine 1500 mg/m2 twice daily for 14 days every 3 weeks for 24 weeks as adjuvant therapy. Patient has completed 4 months of capecitabine 05/09/2025 patient has new 2 mm pulmonary nodule in the right upper lobe. Recommendation is to repeat scan in 6 months Of note patient's Anatera has been positive Patient has been very compliant with capecitabine Will do scan to evaluate the lung nodules Continue capecitabine repeat imaging in 3 months ORDERS: Order # Description [id number] CT Scan + Chest + Abdomen and Pelvis + With W/O Contrast [id number] Follow Up 2 Months + CEA + Comprehensive Metabolic Panel - 12 + CBC with Auto Diff RETURN TO CLINIC: I reviewed the diagnosis, prognosis, and recommended treatment/procedure options with the patient (and/or their legal business services sales representative), including the potential benefits, risks, side effects and alternative therapies. We also discussed the option of no treatment and the possibility of clinical trial participation, if applicable. All questions were addressed, and they demonstrated understanding. They provided informed consent to proceed with the proposed plan of care. BILLING AND COMPLIANCE: I reviewed external records from providers outside my specialty as summarized above. I spent a total of 50 minutes on this patient?s care on the day of their visit excluding time spent related to any billed procedures. This time includes time spent with the patient as well as time spent documenting in the medical record, reviewing patients records and tests, obtaining history, placing orders, communicating with other healthcare professionals, counseling the patient, family or caregiver, and/or care coordination for the diagnoses above. Electronically Signed by: Gus Yu MD T: 2:59 PM CC: Noah?Josafat?Mohsen,? PCP: Noah Lowery Referring: Noah Lowery This document was completed utilizing speech recognition software. Grammatical errors, random word insertions, pronoun errors, and incomplete sentences are an occasional consequence of this system due to software limitations, ambient noise, and hardware issues. Any formal questions or concerns about the content, text or information contained within the body of this dictation should be directly addressed to the provider for clarification.
== END 2025-08-18 23:59 | disposition home or self-care (01) ==
LOC: SCTC 13:33
PROVIDERS: PCP Internal Medicine; Referring Provider Internal Medicine; Visit Provider Internal Medicine Hematology & Oncology
DX: C18.4 Malignant neoplasm of transverse colon (principal); R91.1 Solitary pulmonary nodule; Z90.49 Acquired absence of other specified parts of digestive tract
CPT/HCPCS: 36591; 80053; 82378; 85025; 99213; A4216; J1642; G0463

== ENCOUNTER 2025-09-20 12:26 | Emergency (ER) | payer MEDICARE, MEDICAID, SELFPAY ==
[2025-09-20 12:36] VITALS: BP 131/91; PULSE 99; RESP 16; TEMP 37; O2SAT 99
--- NOTE | 2025-09-20 12:48 | XR_ITS ---
Examination: CT soft tissue neck, with intravenous contrast. 2-D coronal reconstructions. 2-D sagittal reconstructions. Date and time of exam : September 20, 2025, 1718 hours INDICATIONS: Bilateral leg swelling beginning 3 weeks ago. CTDI: vol (mGy): 18.1 DLP: (mGycm): 612 Technique: 1.25 mm axial sections of the neck of the obtained. Coronal and sagittal reconstructions have been obtained. Intravenous contrast administered 60 cc Isovue-370. Low dose protocols were performed. One or more of the following dose reduction techniques were used; automated exposure control, adjustment of the mA and/or KV according to patient size, use of iterative reconstruction technique. Findings: Symmetrical uptake lobes Prominent maxillary antral sinus disease Symmetrical nasopharynx oropharynx No pathologic cervical lymphadenopathy The larynx appears normal Thyroid lobes are not enlarged Normal epiglottis No soft tissue neck abscess No encroachment upon the subglottic region Mild cervical spondylosis IMPRESSION: Prominent maxillary antral sinus disease No nasopharyngeal or oropharyngeal mass No pathologic cervical lymphadenopathy No soft tissue neck abscess Normal normal glottis Normal larynx
--- NOTE | 2025-09-20 12:48 | XR_ITS ---
Examination: CT chest with intravenous contrast 2-D sagittal and coronal reconstructions Exam date and time: September 20, 2025, 1723 hours, comparison May 09, 2025 INDICATIONS: Diagnosis malignant neoplasm of transverse colon 2023, pulmonary nodules CTDI:vol (mGy) 10.9 DLP: (mGycm) 377 Technique: Multiple axial sections of the thorax have been obtained. Sections have been obtained, 3 mm slice thickness. Mediastinal and lung density settings have been obtained. Intravenous contrast administered, 60 cc Isovue-370. 2-D sagittal, coronal images obtained. Low dose protocols were performed. One or more of the following dose reduction techniques were used; automated exposure control, adjustment of the mA and/or KV according to patient size, use of iterative reconstruction technique. Findings: No thoracic aortic aneurysmal dilatation or dissection Pulmonary artery segments are nonenlarged No pulmonary artery emboli No paratracheal tracheobronchial or bronchopulmonary adenopathy On this study no pulmonary nodules No pneumonia, pulmonary edema or pleural disease There is no tumor mass impinging upon the superior vena cava Prominent osteopenia IMPRESSION: No thoracic aortic aneurysmal dilatation Negative for pulmonary artery emboli No mediastinal masses No pneumonia, pulmonary edema, pleural disease or pulmonary nodules Given the patient's presentation, consider bilateral venous Doppler upper extremities follow-up
--- NOTE | 2025-09-20 12:48 | XR_ITS ---
EXAMINATION: PA chest single view TECHNIQUE: Upright PA chest single view Date and time: September 20, 2025, 1309 hours, comparison 06/28/2024 INDICATIONS: Coughing sneezing and throat pain throat swelling shoulder pain 15 days. FINDINGS: Normal heart size Left subclavian Port-A-Cath tip satisfactory position No pneumonia or pulmonary edema Prominent osteopenia IMPRESSION: No active disease
--- NOTE | 2025-09-20 12:52 | EKG_ITS ---
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
--- NOTE | 2025-09-20 12:52 | PD.EDNECK ---
ED Neck Injury Pain RME/HPI General Chief Complaint: Neck Pain/Injury Stated Complaint: SWOLLEN NECK X 2 WKS; SENT BY [facility] Time Seen by Provider: 09/20/25 12:48 Arrival date/time: 09/20/25 12:26 RME / HPI RME / HPI Narrative: DR. SHAY MAIN ED EVALUATION: Patient with Hx of Colorectal CA s/p colorectal resection presents with generalized neck swelling and venous engorgement of 3 weeks duration. Denies fever, sore throat, difficulty breathing or swallowing. PMH: Hypertension, Colorectal Cancer, Gastroesophageal Reflux Disease, Prostate Cancer, Diabetes Mellitus Type 2 PSH: Colorectal resection Allergies: NKDA Social: No tobacco, no alcoholism, no illicit drug abuse Related Data Home Medications ?Medication ?Instructions ?Recorded ?Confirmed amlodipine 10 mg tablet 10 mg PO QDAY 04/24/25 04/24/25 losartan 100 mg tablet 100 mg PO QDAY 04/24/25 04/24/25 Previous Rx's ?Medication ?Instructions ?Recorded glipizide 2.5 mg tablet, extended 2.5 mg PO QDAY 30 days #0 tabs 07/05/24 release 24 hr cefdinir 300 mg capsule 300 mg PO BID #20 caps 09/20/25 hydrocodone 5 mg-acetaminophen 325 1 tab PO Q8H PRN pain #14 tabs 09/20/25 mg tablet prednisone 20 mg tablet 20 mg PO QDAY 7 days #7 tabs 09/20/25 Allergies Allergy/AdvReac Type Severity Reaction Status Date / Time No Known Allergies Allergy Verified 09/20/25 12:29 Review of Systems Review of Systems Systems Reviewed: All systems reviewed, normal except as documented Past Medical History Past Medical History CARDIAC: Positive Cardiac Disorders and Hypertension GASTROINTESTINAL: Positive Gastrointestinal Disorders (abd bloating, change in bowel habits), Colorectal Cancer and Gastroesophageal Reflux Disease GENITOURINARY: Positive Prostate Cancer ENDOCRINE: Positive Endocrine Disorders and Diabetes Mellitus Type 2 OTHER HISTORY: Positive Measles, Mumps, Cancer, Colorectal Cancer and Prostate Cancer Family History FAMILY HISTORY: Positive Family Cardiac Disorders Surgical History SURGICAL: Positive Abdominal Surgery, Bowel Surgery (colon resection) and Transurethral Resection ED Exam Narrative Physical exam: GEN. APPEARANCE: The patient is alert awake oriented X-3 under no distress, lying down comfortably, does not look ill/toxic. Patient has good eye contact. Patient is cooperative. VITALS: All vitals were reviewed and the pulse ox is 99%, which is normal according to my interpretation HEENT: Normocephalic, atraumatic and nontender. Pupils are equal and reactive. Oral mucosa is moist. NECK: Supple, nontender, no meningismus, no JVD. There is no thyromegaly and no lymphadenopathy. CHEST: Nontender on palpation no deformity and no crepitus. CARDIOVASCULAR: Heart regular rhythm, no murmur or gallop rub or extra beats. LUNGS: Clear to auscultation bilaterally with symmetrical chest rise. No laboring tachypnea or wheezing. No intercostal subcostal retraction. No rales and no rhonchi. ABDOMEN: Soft, flat, nontender to palpation, no guarding or rebound tenderness. There are no abnormal masses palpated. No pulsatile masses or bruits. Active and normal bowel sounds. EXTREMITIES: Normal inspection and palpation. No edema. No cyanosis. Patient is able to move all 4 extremities well SKIN: Warm and dry, no rashes noted. MUSCULOSKELETAL: No lumbar or midline bony tenderness. There is no CVA tenderness. No paraspinal muscle spasm or tenderness. NEURO: Cranial nerves II through XII grossly intact. There are no focal neurologic deficits noted. GCS is 15 PSYCHIATRIC: Patient is in normal mood and affect, cooperative. LYMPHATICS: No major lymphadenopathy noted. Course Quality Measures none Orders Category Date Time Status CT Screening NOW Care 09/20/25 12:49 Completed EKG (ED ONLY) *Do not use* NOW Care 09/20/25 12:[address] chest w con Stat Exams 09/20/25 12:[address] soft tissue neck w con Stat Exams 09/20/25 12:48 Completed EKG (ED Only) Stat Exams 09/20/25 12:52 Draft US venous doppler UE BI Stat Exams 09/20/25 18:54 Completed XR chest 1V portable Stat Exams 09/20/25 12:48 Completed BNP [B-Type Natriuretic Peptide] Stat Lab 09/20/25 13:26 Completed CBC [CBC] Stat Lab 09/20/25 13:26 Completed CMP [Comprehensive Metabolic Panel] Stat Lab 09/20/25 13:26 Completed ESR [Sed Rate (ESR)] Stat Lab 09/20/25 13:26 Completed Troponin I Stat Lab 09/20/25 13:26 Completed Urinalysis, C/S if Indicated Stat Lab 09/20/25 13:55 Completed Vital Signs Vital signs: Vital Signs Temperature 98.6 F 09/20/25 12:36 Pulse Rate 99 09/20/25 12:36 Respiratory Rate 16 09/20/25 12:36 Blood Pressure 131/91 H 09/20/25 12:36 Pulse Oximetry (%) 99 09/20/25 12:36 Oxygen Delivery Method Room Air 09/20/25 12:36 Neck Pain MDM Narrative MDM Narrative:: Scribe Attestation: I, Lina Mcdaniel, am scribing for and in the presence of Dr. Dominguez. Provider Notation: Although this document has been carefully reviewed, there may still be some phonetic and other typographical errors. These errors are purely grammatical due to imperfections in the software program and should not be construed in any way to compromise the substance of the patient's medical care during this visit. Patient with Hx of Colorectal CA s/p colorectal resection presents with generalized neck swelling and venous engorgement of 3 weeks duration. Denies fever, sore throat, difficulty breathing or swallowing. Please see PE findings. Laboratory markers, ncluding CBC, demonstrates marginally elevated CBC of 11.1, normal hemoglobin and platelet count. No left shift or associated bandemia. Relative monocytosis. Serum chemistries essentially unremarkable, and UA within normal limits. Venous doppler of BUE negative for DVT. Soft Tissue Neck CT is essentially normal excluding maxillary sinusitis. Chest CT unremarkable. Patient pbs extended no airway comp identie, given monocytsis, possible mononucleosis will place on steroids in effort to reduce edema. Recommend close F/U by PMD. Final diagnosis includes monocytosis and neck swelling. Patient data External records reviewed:: [facility] previous records (Reviewed prior ED records from 06/28/24. Patient was seen for Diarrhea.) Clinical information provided by:: patient Social determinants that could affect healthcare access:: none Patient has the following chronic illnesses:: Hypertension, Colorectal Cancer, Gastroesophageal Reflux Disease, Prostate Cancer, Diabetes Mellitus Type 2 How is presenting disease/condition affected by chronic disease/condition?: exacerbated by Evaluation data The following diagnostics were reviewed and interpreted by me:: lab results, radiology exam(s) and EKG tracing(s) (EKG demonstrates sinus rhythm with rate of 69 bpm, axis leftward, no ST segment changes, noted LVH, per my interpretation.) Lab and/or radiology exams considered but not ordered:: None Interpretation Summary: RADIOLOGY Chest X-Ray: FINDINGS: Normal heart size Left subclavian Port-A-Cath tip satisfactory position No pneumonia or pulmonary edema Prominent osteopenia IMPRESSION: No active disease Chest CT: Findings: No thoracic aortic aneurysmal dilatation or dissection Pulmonary artery segments are nonenlarged No pulmonary artery emboli No paratracheal tracheobronchial or bronchopulmonary adenopathy On this study no pulmonary nodules No pneumonia, pulmonary edema or pleural disease There is no tumor mass impinging upon the superior vena cava Prominent osteopenia IMPRESSION: No thoracic aortic aneurysmal dilatation Negative for pulmonary artery emboli No mediastinal masses No pneumonia, pulmonary edema, pleural disease or pulmonary nodules Given the patient's presentation, consider bilateral venous Doppler upper extremities follow-up Soft Tissue Neck CT: Findings: Symmetrical uptake lobes Prominent maxillary antral sinus disease Symmetrical nasopharynx oropharynx No pathologic cervical lymphadenopathy The larynx appears normal Thyroid lobes are not enlarged Normal epiglottis No soft tissue neck abscess No encroachment upon the subglottic region Mild cervical spondylosis IMPRESSION: Prominent maxillary antral sinus disease No nasopharyngeal or oropharyngeal mass No pathologic cervical lymphadenopathy No soft tissue neck abscess Normal normal glottis Normal larynx Venous Doppler BUE: Findings: Deep venous systems do not demonstrate abnormal echogenicity. All visualized deep veins exhibit compressibility. All visualized deep veins exhibit augmentation. Impression: Negative for deep vein thrombosis Medications / Prescriptions Medications or Prescriptions considered but not ordered:: None Medication administrations:: See above if any Consultations Consultation(s) initiated? (list below): No Diagnosis Neck Differential Diagnosis: vertebral artery dissection and other (Superior Vena Cava (SVC) syndrome, Mononucleosis, Heart failure) Most likely diagnosis given after review of the tests above:: Monocytosis and Neck swelling Admission Indicated Admission indicated?: not indicated Explain why admission is indicated or not indicated:: Patient does not meet admission criteria Admission Request Was there a request for admission?: No Disposition Plan Disposition Plan: Discharge Discharge Attestation Discharge Attestation: The patient and all family members were given an opportunity to ask questions and understood the discharge instructions. Discharge instructions specifically effects, indications for sooner follow up or return to the emergency department, and the expected course of current diagnosis. Patient condition: Stable Discharge Plan Plan Patient Disposition: HOME (Self Care) Prescriptions/Referrals Prescriptions/Med Rec: New prednisone 20 mg tablet 20 mg PO QDAY 7 Days Qty: 7 0RF Taper: Prednisone Taper 40 mg DAILY for 3 Days and 0 Hour cefdinir 300 mg capsule 300 mg PO BID Qty: 20 0RF hydrocodone-acetaminophen 5-325 mg tablet 1 tab PO Q8H MDD 3 tab PRN (Reason: pain) Qty: 14 0RF No Action glipizide 2.5 mg tablet extended release 24hr 2.5 mg PO QDAY 30 Days Qty: 0 0RF Patient Comments: TAKE 1 TABLET BY MOUTH EVERY DAY AFTER A MEAL amlodipine 10 mg tablet 10 mg PO QDAY Patient Comments: TAKE 1 TABLET BY MOUTH EVERY DAY losartan 100 mg tablet 100 mg PO QDAY Patient Comments: TAKE 1 TABLET BY MOUTH EVERY DAY Referrals: Rosario Mueller PA-C [Primary Care Provider, Family Practice] - In 1 week Problem List Clinical Impression: Swollen neck, History of colon cancer, Sinusitis, Reactive monocytosis Impression comment: Neck swelling/history of colon cancer/monocytosis/sinusitis Patient/Caregiver Discharge Instructions Discharge Activity: activity as tolerated Additional Instructions: Medication as directed. Follow-up primary care doctor in 5 to 7 days. Return for progressive swelling of the neck difficulty swallowing or breathing. Or general worse condition. Print Language: Bengali Stand Alone Forms: [facility]ine Award Info., Patient Portal Info Letter
[2025-09-20 13:55] LABS: Basophils # (Auto) 0.0 Thou/mm3 (0.0-0.2); Basophils % (Auto) 0 % (0-2.5); Eosinophils # (Auto) 0.0 Thou/mm3 (0.0-0.5); Eosinophils % (Auto) 0 % (0-10); Hematocrit 42.1 % (41.0-53.0); Hemoglobin 14.2 g/dL (13.5-16.0); Immature Granulocytes Auto 0.05 Thou/mm3 (0.00-0.00); Lymphocytes # (Auto) 1.3 Thou/mm3 (1.0-4.8); Lymphocytes % (Auto) 12 % (10-50); Mean Corpuscular HGB Conc 33.7 g/dl (31.0-37.0); Mean Corpuscular Hemoglobin 33.3 pg (25.0-35.0); Mean Corpuscular Volume 99 fL (80-100); Monocytes # (Auto) 1.5 Thou/mm3 (0.0-0.8); Monocytes % (Auto) 14 % (0-12); Neutrophils # (Auto) 8.2 Thou/mm3 (1.8-7.7); Neutrophils % (Auto) 74 % (37-80); Nucleated Red Blood Cell # 0.00 Thou/mm3 (0.00-0.00); Nucleated Red Blood Cell % 0 /100 WBC (0); Platelet Count 227 Thou/mm3 (140-440); RDW Standard Deviation 44.7 fL (35.1-43.9); Red Blood Count 4.27 Miln/mm3 (4.50-5.90); White Blood Count 11.1 Thou/mm3 (3.8-10.6)
[2025-09-20 14:01] LABS: Collection Type, Urine Clean Catch; Squamous Epithelial Cell,Urine 0 /hpf (0-5)
[2025-09-20 14:04] LABS: Bilirubin,Urine Negative (Negative); Blood,Urine Negative (Negative); Color,Urine Yellow (Lt Yel-Yel); Culture Indicated,Urine Not Indicated; Glucose, Urine Negative (Negative); Hyaline Casts,Urine < 1 /hpf (0-1); Ketones,Urine Negative (Negative); Leukocyte Esterase,Urine Negative (Negative); Nitrite,Urine Negative (Negative); PH,Urine 6.0 (5.0-7.0); Protein,Urine 1+ (Neg - Trace); RBC,Urine 2 /hpf (0-3); Specific Gravity,Urine 1.030 (1.001-1.035); Urobilinogen,Urine 2.0 mg/dL (0.0-1.0); WBC,Urine 1 /hpf (0-5)
[2025-09-20 14:07] LABS: Sed Rate (ESR) 27 mm/hr (0-20)
[2025-09-20 14:09] LABS: Clarity,Urine Hazy (Clear/Hazy)
[2025-09-20 14:24] LABS: B-Type Natriuretic Peptide < 20 pg/mL (0-100)
[2025-09-20 14:27] LABS: Alanine Aminotransferase 11 U/L (10-49); Albumin, Serum 5.2 gm/dL (3.4-4.8); Albumin/Globulin Ratio 1.6 (1.2-2.2); Alkaline Phosphatase 63 U/L (46-116); Anion Gap 11 (7-16); Aspartate Amino Transferase 27 U/L (0-34); BUN/Creatinine Ratio 15 Ratio (12-20); Bilirubin,Total 0.4 mg/dL (0.3-1.2); Blood Urea Nitrogen 17 mg/dL (9-23); Calcium 9.7 mg/dL (8.3-10.6); Calcium (Corrected) 9.7 mg/dL (8.5-10.1); Carbon Dioxide 26.5 mMol/L (20.0-31.0); Chloride 105 mMol/L (98-107); Creatinine (Component) 1.1 mg/dL (0.6-1.3); Globulin 3.2 gm/dL (2.3-3.5); Glucose 64 mg/dL (74-106); Osmolality,Calculated 282 (275-295); Potassium 3.8 mMol/L (3.4-5.1); Sodium 142 mMol/L (136-145); Total Protein 8.4 gm/dL (5.7-8.2); Troponin I < 0.020 ng/mL (0.0-0.045); eGFR > 60 See Note
--- NOTE | 2025-09-20 18:54 | XR_ITS ---
Examination: Venous duplex upper extremity sonogram, bilateral. Date and time of exam: September 20, 2025, 2045 hours INDICATIONS: Bilateral neck swelling beginning 3 weeks ago Technique: Multiple sonographic images of the deep venous system have been obtained. B-mode/2-D grayscale imaging of vascular structures and Doppler spectral analysis (waveforms) and color performed Both legs are examined. Findings: Deep venous systems do not demonstrate abnormal echogenicity. All visualized deep veins exhibit compressibility. All visualized deep veins exhibit augmentation. Impression: Negative for deep vein thrombosis
[2025-09-20 22:13] VITALS: BP 106/58; PULSE 74; RESP 18; TEMP 37.3; O2SAT 98; BMI 24.1
== END 2025-09-20 22:15 | disposition home or self-care (01) ==
PROVIDERS: Emergency Provider Emergency Medicine; PCP Physician Assistant
DX: J32.0 Chronic maxillary sinusitis (principal); R22.1 Localized swelling, mass and lump, neck; D72.821 Monocytosis (symptomatic); Z85.048 Personal history of other malignant neoplasm of rectum, rectosigmoid junction, and anus; R05.9 Cough, unspecified; I10 Essential (primary) hypertension; R94.31 Abnormal electrocardiogram [ECG] [EKG]
CPT/HCPCS: 36415; 70491; 71045; 71260; 80053; 81001; 83880; 84484; 85025; 85652; 93005; 93970; 99283; A4649; Q9967

== ENCOUNTER → 2025-10-11 | Outpatient (CLI) | payer MEDICARE, MEDICAID, SELFPAY ==
--- NOTE | 2025-10-11 09:00 | XR_ITS ---
Examination: CT chest with intravenous contrast CT abdomen with intravenous contrast CT pelvis with intravenous contrast CT chest without intravenous contrast CT abdomen without intravenous contrast CT pelvis without intravenous contrast 2-D coronal and sagittal reconstructions Time of exam: October 11, 2025, 0916 hours, comparison CT chest September 20, 2025, CT soft tissue neck September 20, 2025, CT chest abdomen pelvis May 09, 2025 INDICATIONS: Diagnosis malignant neoplasm of transverse colon, restaging May 09, 2025 CTDI: vol (mGy) : 20 DLP: (mGycm): 1180 Technique: Multiple axial images of the chest, abdomen and pelvis with intravenous contrast, 3.0 mm slice thickness. Images obtained post intravenous injection Isovue 370 60 cc. 2-D sagittal and coronal reconstructions. Low dose protocols were performed. One or more of the following dose reduction techniques were used; automated exposure control, adjustment of the mA and/or KV according to patient size, use of iterative reconstruction technique. Findings: No thoracic aortic aneurysmal dilatation or dissection No pulmonary artery filling defects No mediastinal lymphadenopathy On this study no pneumonia, pulmonary edema, pleural disease or pulmonary nodules Liver is mildly irregular in contour, left lobe 10 mm liver cyst No abnormal enhancing liver lesions Suspicious for tiny gallstones Spleen is not enlarged Small retrocardiac gastric hernia Normal adrenal glands No abdominal or pelvic lymphadenopathy No hydronephrosis or renal calculi Aorta normal size 4.5 cm umbilical hernia defect Mass in the subcutaneous fatty tissue periumbilical, axial image 213, measuring 21 x 20 mm, not seen on the CT abdomen pelvis 06/28/2024 No ascites Contracted urinary bladder Moderate osteopenia IMPRESSION: No interval mediastinal lymphadenopathy No interval pneumonia, pulmonary edema, pleural disease or pulmonary nodules 21 x 20 mm soft tissue mass in the subcutaneous fatty tissue periumbilical, differential would include soft tissue metastatic tumor mass, recommend ultrasound periumbilical soft tissue follow-up
== END | disposition home or self-care (01) ==
PROVIDERS: PCP Family Medicine; Referring Provider Internal Medicine Hematology & Oncology; Visit Provider Internal Medicine Hematology & Oncology
DX: R22.2 Localized swelling, mass and lump, trunk (principal); C18.4 Malignant neoplasm of transverse colon
CPT/HCPCS: 71270; 74178; A4649; Q9967